=== PATIENT | male | born 1955 | race African-American/Black ===

== ENCOUNTER 2016-09-24 20:53 | Emergency (ER) | payer MEDICAID, OTHER ==
[~2016-09-24] VITALS: Ht 165.1 cm; Wt 107.0 kg
[2016-09-25 04:31] VITALS: BP 106/60
== END 2016-09-25 04:37 | disposition home or self-care (01) ==
LOC: ER 09-25 02:58
DX: S92.421A Displaced fracture of distal phalanx of right great toe, initial encounter for closed fracture (principal); I10 Essential (primary) hypertension; W22.03XA Walked into furniture, initial encounter; Y93.89 Activity, other specified; Y92.89 Other specified places as the place of occurrence of the external cause; Y99.8 Other external cause status
CPT/HCPCS: 73660; 99284; Z7610

== ENCOUNTER 2016-12-21 13:40 | Emergency (ER) | payer OTHER ==
[~2016-12-21] VITALS: Ht 165.1 cm; Wt 109.0 kg
[2016-12-21] MEDS ORDERED: KETOROLAC 30MG/ML VIAL IV ONE (15:30)
[2016-12-21] MEDS ORDERED: LIDOCAINE HCL 1% 20ML VIAL (Pyxis) INJ INFIL ONE (19:30)
[2016-12-21] MEDS ORDERED: TETANUS, DIPHTHERIA, PERTUSSIS VAC/PF 0.5ML (>7YR OLD) IM ONE ×2 (22:45→23:15)
[2016-12-21 23:46] VITALS: BP 109/59
== END 2016-12-22 00:14 | disposition home or self-care (01) ==
LOC: ER 14:10
DX: S42.292A Other displaced fracture of upper end of left humerus, initial encounter for closed fracture (principal); S81.812A Laceration without foreign body, left lower leg, initial encounter; S80.811A Abrasion, right lower leg, initial encounter; I10 Essential (primary) hypertension; E11.9 Type 2 diabetes mellitus without complications; W11.XXXA Fall on and from ladder, initial encounter; Y93.89 Activity, other specified; Y92.89 Other specified places as the place of occurrence of the external cause; Y99.8 Other external cause status
CPT/HCPCS: 12002; 73000; 73030; 90471; 90715; 96374; 99284; J1885; J3490; Z7610; A4565

== ENCOUNTER 2017-01-06 10:29 | Emergency (ER) | payer OTHER ==
[~2017-01-06] VITALS: Ht 165.1 cm; Wt 109.0 kg
[2017-01-06] MEDS ORDERED: BACITRACIN ZINC OINT UDPKT TOP ONE (11:15)
[2017-01-06] MEDS ORDERED: IBUPROFEN 600MG TABLET PO ONE (11:15)
[2017-01-06 11:30] VITALS: BP 164/70
== END 2017-01-06 11:48 | disposition home or self-care (01) ==
LOC: ER 10:53
DX: S81.812D Laceration without foreign body, left lower leg, subsequent encounter (principal); I10 Essential (primary) hypertension; E11.9 Type 2 diabetes mellitus without complications; X58.XXXD Exposure to other specified factors, subsequent encounter
CPT/HCPCS: 99283; Z7610

== ENCOUNTER 2018-03-30 13:39 | Emergency (ER) | payer OTHER ==
[~2018-03-30] VITALS: Ht 172.7 cm; Wt 113.0 kg
[2018-03-30] MEDS ORDERED: IBUPROFEN 600MG TABLET PO ONE (15:00)
[2018-03-30 16:26] VITALS: BP 129/98
== END 2018-03-30 16:38 | disposition home or self-care (01) ==
LOC: ER 13:47
DX: S90.32XA Contusion of left foot, initial encounter (principal); E11.9 Type 2 diabetes mellitus without complications; I10 Essential (primary) hypertension; Z86.73 Personal history of transient ischemic attack (TIA), and cerebral infarction without residual deficits; Z90.49 Acquired absence of other specified parts of digestive tract; V03.10XA Pedestrian on foot injured in collision with car, pick-up truck or van in traffic accident, initial encounter; Y93.89 Activity, other specified; Y92.488 Other paved roadways as the place of occurrence of the external cause
CPT/HCPCS: 73610; 73630; 99283

== ENCOUNTER 2021-08-26 10:51 | Inpatient (IN) | payer MEDICARE, MEDICAID ==
[~2021-08-26] VITALS: Ht 165.1 cm; Wt 111.6 kg
[2021-08-26] MEDS ORDERED: ALBUTEROL (0.083%) 2.5MG/3ML NEB HHN STA (11:57)
[2021-08-26 12:22] LABS: BASOPHILS % 0.8 % (0.0-2.0); EOSINOPHILS % 3.1 % (0.0-5.0); HEMATOCRIT. 40.9 % (42.0-52.0); HEMOGLOBIN. 12.8 g/dL (14.0-18.0); LYMPHOCYTES % 18.1 % (20.0-50.0); MEAN CORPUSCULAR HEMOGLOBIN 26.2 pg (28.0-32.0); MEAN CORPUSCULAR VOLUME 83.6 fL (80.0-94.0); MEAN PLATELET VOLUME 11.9 fl (7.4-10.4); MONOCYTES % 8.2 % (2.0-8.0); NEUTROPHILS % 69.8 % (40.0-76.0); PLATELET 122 x1000/uL (130-400); RED BLOOD CELL COUNT 4.89 mill/uL (4.7-6.1); RED CELL DISTRIBUTION WIDTH 17.5 % (11.6-14.6)
[2021-08-26 12:33] LABS: CHLORIDE 109 mEq/L (98-107)
[2021-08-26 12:36] LABS: ETHANOL BLOOD < 10 mg/dL
[2021-08-26 14:06] LABS: *AMPHETAMINES SCREEN URINE NEGATIVE (NEGATIVE); *BARBITURATES SCREEN URINE NEGATIVE (NEGATIVE); *BENZODIAZEPINES SCREEN URINE NEGATIVE (NEGATIVE); *COCAINE SCREEN URINE NEGATIVE (NEGATIVE); CANNABINOID URINE SCREEN NEGATIVE (NEGATIVE); METHADONE URINE SCREEN NEGATIVE (NEGATIVE); OPIATES URINE SCREEN NEGATIVE (NEGATIVE); PHENCYCLIDINE URINE SCREEN NEGATIVE (NEGATIVE)
[2021-08-26] MEDS ORDERED: NITROGLYCERIN OINT 1GM/INCH UDPKT TD NR (14:15)
[2021-08-26] MEDS ORDERED: ALBUTEROL 6.7GM HFA INHALER ORI NR (14:15)
[2021-08-26] MEDS ORDERED: ASPIRIN 325MG EC TABLET PO NR (15:00)
[2021-08-26] MEDS ORDERED: FUROSEMIDE 40MG/4ML VIAL IV NR (15:00)
[2021-08-26] MEDS ORDERED: DEXAMETHASONE 4MG TABLET PO NR (15:00)
[2021-08-26 18:28] VITALS: BP 158/88
[2021-08-26 20:00] VITALS: BP 145/64
[2021-08-26 23:54] VITALS: BP 142/98
[2021-08-27] VITALS: BP 141/82
[2021-08-27] MEDS ORDERED: METF-416 PO (00:10)
[2021-08-27] MEDS ORDERED: ATOR-2 PO (00:10)
[2021-08-27] MEDS ORDERED: CARV12.545 PO (00:10)
[2021-08-27] MEDS ORDERED: ASPI-1406 PO (00:10)
[2021-08-27] MEDS ORDERED: LISI20TA31 PO (00:10)
[2021-08-27] MEDS: AZITHROMYCIN 500 MG in DEXT 5% WATER 250 ML IV SCH (02:28)
[2021-08-27] MEDS: CEFTRIAXONE 1,000 MG in DEXTROSE 5% WATER 50 ML IV SCH (02:28)
[2021-08-27 04:00] VITALS: BP 137/73
[2021-08-27] MEDS ORDERED: ENOXAPARIN 30MG/0.3ML SYR SUBCUT SCH (06:00)
[2021-08-27 07:46] LABS: BASOPHILS % 0.2 % (0.0-2.0); HEMOGLOBIN. 12.4 g/dL (14.0-18.0); LYMPHOCYTES % 11.5 % (20.0-50.0); MEAN CORPUSCULAR HEMOGLOBIN 26.1 pg (28.0-32.0); MEAN CORPUSCULAR VOLUME 82.4 fL (80.0-94.0); MEAN PLATELET VOLUME 12.8 fl (7.4-10.4); NEUTROPHILS % 84.3 % (40.0-76.0); PLATELET 133 x1000/uL (130-400); RED BLOOD CELL COUNT 4.73 mill/uL (4.7-6.1); RED CELL DISTRIBUTION WIDTH 16.6 % (11.6-14.6)
[2021-08-27 08:09] LABS: CHLORIDE 107 mEq/L (98-107)
[2021-08-27] MEDS: DEXAMETHASONE 4MG TABLET PO SCH (08:47)
[2021-08-27] MEDS ORDERED: CEFTRIAXONE 1 G PREMIX 50 ML IV SCH (09:00)
[2021-08-27] MEDS ORDERED: ACETAMINOPHEN 650MG/20.3ML UDC GT PRN (09:30)
[2021-08-27] MEDS ORDERED: HYDROCODONE/ACETAMINOPHEN 5/325MG TABLET PO PRN (09:30)
[2021-08-27] MEDS ORDERED: MORPHINE SULFATE 2 MG/ML CPJ (NOT FOR IM USE) IV PRN (09:30)
[2021-08-27] MEDS ORDERED: ONDANSETRON HCL 4MG/2ML INJ IV PRN (09:30)
[2021-08-27 10:11] LABS: BG BASE EXCESS -2.1 mmol/L (-2.0-2.0); BG CARBOXYHEMOGLOBIN 0.8 % (0.5-1.5); BG DEOXYHEMOGLOBIN 3.5 % (0.0-5.0); BG FRACTION INSPIRED OXYGEN 21; BG HCO3 ACT 22.7 mmol/L (22.0-26.0); BG METHEMOGLOBIN 0.3 % (0.0-1.5); BG OXYGEN SATURATION 96.5 % (92.0-98.5); BG OXYHEMOGLOBIN 95.4 % (94.0-97.0); BG PH 7.383 (7.350-7.450); BG PO2 88.4 mmHg (75.0-100.0); BG SAMPLE SITE RIGHT RADIAL; BG TOTAL HEMOGLOBIN 13.5 g/dL (12.0-18.0); BG VENT MODE ROOM AIR
[2021-08-27] MEDS ORDERED: NALOXONE HCL 0.4MG/ML VIAL IV PRN (11:30)
[2021-08-27 12:00] VITALS: BP_SYST 108; BP_SYST 142; BP_DIAS 70; BP_DIAS 97
[2021-08-27] MEDS: FUROSEMIDE 40MG/4ML VIAL IVP SCH (12:36)
[2021-08-27] MEDS: ASPIRIN 81MG EC TABLET PO SCH (12:37)
[2021-08-27] MEDS: ENOXAPARIN 120MG/0.8ML SYR SUBCUT SCH (15:12)
[2021-08-27] MEDS: CARVEDILOL 12.5MG TABLET PO SCH ×2 (15:15→20:37)
[2021-08-27 16:00] VITALS: BP 142/97
[2021-08-27] MEDS ORDERED: BENZONATATE 100MG CAPSULE PO PRN (16:45)
[2021-08-27] MEDS ORDERED: ALBUTEROL 6.7GM HFA INHALER ORI PRN (16:45)
[2021-08-27] MEDS: METFORMIN HCL 500MG TABLET PO SCH (18:35)
[2021-08-27 20:00] VITALS: BP 167/103
[2021-08-27] MEDS: TRIAMCINOLONE ACETONIDE 0.1 % OINT 15GM TOP SCH (20:37)
[2021-08-27 20:47] LABS: CREATINE KINASE MB FRACTION 1.2 ng/mL (0.5-3.6)
[2021-08-28] VITALS: BP 135/97
[2021-08-28] MEDS: ENOXAPARIN 120MG/0.8ML SYR SUBCUT SCH ×2 (00:18→13:05)
[2021-08-28] MEDS: CEFTRIAXONE 1,000 MG in DEXTROSE 5% WATER 50 ML IV SCH (02:37)
[2021-08-28] MEDS: AZITHROMYCIN 500 MG in DEXT 5% WATER 250 ML IV SCH (02:38)
[2021-08-28 03:24] LABS: CREATINE KINASE MB FRACTION 1.5 ng/mL (0.5-3.6)
[2021-08-28 04:00] VITALS: BP 132/82
[2021-08-28 08:00] VITALS: BP 141/84
[2021-08-28] MEDS ORDERED: FURO-151 MT (08:53)
[2021-08-28] MEDS: DEXAMETHASONE 4MG TABLET PO SCH (09:21)
[2021-08-28] MEDS: FUROSEMIDE 40MG/4ML VIAL IVP SCH (09:21)
[2021-08-28] MEDS: ASPIRIN 81MG EC TABLET PO SCH (09:21)
[2021-08-28] MEDS: METFORMIN HCL 500MG TABLET PO SCH ×2 (09:21→16:53)
[2021-08-28] MEDS: CARVEDILOL 12.5MG TABLET PO SCH ×2 (09:21→21:32)
[2021-08-28] MEDS: TRIAMCINOLONE ACETONIDE 0.1 % OINT 15GM TOP SCH ×2 (09:22→21:32)
[2021-08-28 11:29] LABS: CLARITY URINE CLEAR (CLEAR); COLOR URINE YELLOW (YELLOW); KETONES URINE NEGATIVE (NEGATIVE); LEUKOCYTE ESTERASE URINE NEGATIVE (NEGATIVE); NITRITE URINE NEGATIVE (NEGATIVE); OCCULT BLOOD URINE NEGATIVE (NEGATIVE); PROTEIN URINE NEGATIVE (NEGATIVE); SPECIFIC GRAVITY URINE 1.006 (1.005-1.030); UROBILINOGEN URINE 0.2 E.U./dL (0.2-1.0)
[2021-08-28 12:00] VITALS: BP 138/87
[2021-08-28 16:00] VITALS: BP 150/104
[2021-08-28] MEDS ORDERED: CLONIDINE 0.1MG TABLET PO PRN (18:45)
[2021-08-28 20:00] VITALS: BP 165/94
[2021-08-29] VITALS: BP_SYST 142; BP_SYST 154; BP_DIAS 67; BP_DIAS 77
[2021-08-29] MEDS: ENOXAPARIN 120MG/0.8ML SYR SUBCUT SCH ×2 (00:11→12:22)
[2021-08-29] MEDS: CEFTRIAXONE 1,000 MG in DEXTROSE 5% WATER 50 ML IV SCH (03:08)
[2021-08-29 04:00] VITALS: BP 146/93
[2021-08-29 08:00] VITALS: BP 155/95
[2021-08-29] MEDS ORDERED: AZITHROMYCIN 500 MG TABLET PO SCH (08:00)
[2021-08-29] MEDS: TRIAMCINOLONE ACETONIDE 0.1 % OINT 15GM TOP SCH (08:09)
[2021-08-29] MEDS: ASPIRIN 81MG EC TABLET PO SCH (08:10)
[2021-08-29] MEDS: DEXAMETHASONE 4MG TABLET PO SCH (08:10)
[2021-08-29] MEDS: METFORMIN HCL 500MG TABLET PO SCH (08:10)
[2021-08-29] MEDS: FUROSEMIDE 40MG/4ML VIAL IVP SCH (09:49)
[2021-08-29] MEDS: CARVEDILOL 12.5MG TABLET PO SCH (09:49)
[2021-08-29 12:00] VITALS: BP 155/95
[2021-08-29 12:01] VITALS: BP 116/83
[2021-08-29 13:31] VITALS: BP 116/83
== END 2021-08-29 15:20 | disposition home or self-care (01) | DRG 177 ==
LOC: ER 10:51 → 7EST 15:15 → ENRESERV 17:23
PROVIDERS: ADMIT Internal Medicine Nephrology; ATTEND Internal Medicine Nephrology
DX: U07.1 COVID-19 (principal); I50.33 Acute on chronic diastolic (congestive) heart failure; J96.00 Acute respiratory failure, unspecified whether with hypoxia or hypercapnia; Z68.41 Body mass index [BMI] 40.0-44.9, adult; I48.91 Unspecified atrial fibrillation; E66.9 Obesity, unspecified; E11.9 Type 2 diabetes mellitus without complications; I11.0 Hypertensive heart disease with heart failure; J20.8 Acute bronchitis due to other specified organisms; Z86.73 Personal history of transient ischemic attack (TIA), and cerebral infarction without residual deficits; Z79.01 Long term (current) use of anticoagulants; Z87.891 Personal history of nicotine dependence; Z91.018 Allergy to other foods; Z90.49 Acquired absence of other specified parts of digestive tract; Z79.82 Long term (current) use of aspirin; Z79.84 Long term (current) use of oral hypoglycemic drugs; Z71.3 Dietary counseling and surveillance
CPT/HCPCS: 36415; 36600; 71045; 80048; 80053; 80305; 80320; 81003; 82375; 82550; 82553; 82805; 83036; 83880; 84484; 85025; 87426; 99285; C9803; J0456; J0696; J1650; J1940; J7060; J8540; G0480

== ENCOUNTER 2021-09-03 09:45 | Emergency (ER) | payer MEDICARE, MEDICAID ==
[~2021-09-03] VITALS: Ht 165.1 cm; Wt 109.0 kg
[~2021-09-03 09:45] MED LIST: ASPI-1406 PO; ATOR-2 PO; CARV12.545 PO; FURO-151 MT; LISI20TA31 PO; METF-416 PO
[2021-09-03 09:53] VITALS: BP 156/115
== END 2021-09-03 10:58 | disposition home or self-care (01) ==
LOC: ER 09:45
DX: Z11.52 Encounter for screening for COVID-19 (principal)
CPT/HCPCS: 99281

== ENCOUNTER 2021-09-22 10:23 | Inpatient (IN) | payer MEDICARE, MEDICAID ==
[~2021-09-22] VITALS: Ht 165.1 cm; Wt 108.9 kg
[2021-09-22 12:22] LABS: BASOPHILS % 1.3 % (0.0-2.0); EOSINOPHILS % 2.9 % (0.0-5.0); HEMATOCRIT. 42.7 % (42.0-52.0); HEMOGLOBIN. 13.5 g/dL (14.0-18.0); LYMPHOCYTES % 19.3 % (20.0-50.0); MEAN CORPUSCULAR HEMOGLOBIN 26.3 pg (28.0-32.0); MEAN CORPUSCULAR VOLUME 83.1 fL (80.0-94.0); MEAN PLATELET VOLUME 12.6 fl (7.4-10.4); MONOCYTES % 9.2 % (2.0-8.0); NEUTROPHILS % 67.3 % (40.0-76.0); PLATELET 131 x1000/uL (130-400); RED BLOOD CELL COUNT 5.14 mill/uL (4.7-6.1); RED CELL DISTRIBUTION WIDTH 17.2 % (11.6-14.6)
[2021-09-22 12:33] LABS: CHLORIDE 112 mEq/L (98-107)
[2021-09-22] MEDS ORDERED: FUROSEMIDE 40MG/4ML VIAL IVP SCH (13:00)
[2021-09-22] MEDS ORDERED: METOPROLOL TARTRATE 5MG/5ML VIAL IV ONE (15:00)
[2021-09-22 22:00] VITALS: BP 149/83
[2021-09-22 23:00] VITALS: BP 149/83
[2021-09-22] MEDS ORDERED: MAGNESIUM/ALUMINUM HYDROXIDE/SIMETHICONE 30ML UDC PO PRN (23:00)
[2021-09-22] MEDS ORDERED: HYDROCODONE/ACETAMINOPHEN 5/325MG TABLET PO PRN (23:00)
[2021-09-22] MEDS ORDERED: MORPHINE SULFATE 2 MG/ML CPJ (NOT FOR IM USE) IV PRN (23:00)
[2021-09-22] MEDS ORDERED: ACETAMINOPHEN 650MG SUPP PR PRN (23:00)
[2021-09-22] MEDS ORDERED: IPRATROPIUM/ALBUTEROL 0.5-3(2.5)MG/3ML NEB NEB PRN (23:00)
[2021-09-22] MEDS ORDERED: ONDANSETRON HCL 4MG/2ML INJ IV PRN (23:00)
[2021-09-22] MEDS ORDERED: ACETAMINOPHEN 325MG TABLET PO PRN (23:00)
[2021-09-23] VITALS: BP 140/82
[2021-09-23] MEDS ORDERED: DEXTROSE 50% WATER 50ML SYRINGE IV PRN (01:15)
[2021-09-23] MEDS: BLOOD SUGAR DIAGNOSTIC STRIP TEST SCH ×4 (06:47→21:00)
[2021-09-23 06:52] LABS: BASOPHILS % 0.8 % (0.0-2.0); HEMATOCRIT. 42.2 % (42.0-52.0); HEMOGLOBIN. 13.4 g/dL (14.0-18.0); LYMPHOCYTES % 24.1 % (20.0-50.0); MEAN CORPUSCULAR HEMOGLOBIN 26.2 pg (28.0-32.0); MEAN CORPUSCULAR VOLUME 82.6 fL (80.0-94.0); MEAN PLATELET VOLUME 12.2 fl (7.4-10.4); MONOCYTES % 10.1 % (2.0-8.0); PLATELET 133 x1000/uL (130-400); RED BLOOD CELL COUNT 5.11 mill/uL (4.7-6.1); RED CELL DISTRIBUTION WIDTH 17.4 % (11.6-14.6)
[2021-09-23 07:05] LABS: CHLORIDE 108 mEq/L (98-107)
[2021-09-23 07:14] LABS: PHOSPHORUS 3.5 mg/dL (2.5-4.9)
[2021-09-23] MEDS: INSULIN LISPRO 100 UNITS/ML SUBCUT SCH ×4 (07:16→21:46)
[2021-09-23 08:00] VITALS: BP 153/97
[2021-09-23] MEDS: FUROSEMIDE 40MG/4ML VIAL IV SCH ×2 (08:42)
[2021-09-23] MEDS: METOPROLOL TARTRATE 25MG TABLET PO SCH ×2 (08:43→16:59)
[2021-09-23] MEDS: ENOXAPARIN 30MG/0.3ML SYR SUBCUT SCH ×2 (08:43→21:46)
[2021-09-23] MEDS: ASPIRIN 81MG EC TABLET PO SCH (08:43)
[2021-09-23] MEDS: FOLIC ACID 1MG TABLET PO SCH (08:44)
[2021-09-23 10:29] LABS: CLARITY URINE CLEAR (CLEAR); COLOR URINE YELLOW (YELLOW); KETONES URINE NEGATIVE (NEGATIVE); LEUKOCYTE ESTERASE URINE NEGATIVE (NEGATIVE); NITRITE URINE NEGATIVE (NEGATIVE); OCCULT BLOOD URINE NEGATIVE (NEGATIVE); PH URINE 5.5 (4.5-8.0); PROTEIN URINE 3+ (NEGATIVE); SPECIFIC GRAVITY URINE 1.019 (1.005-1.030)
[2021-09-23 10:50] LABS: *AMPHETAMINES SCREEN URINE NEGATIVE (NEGATIVE); *BARBITURATES SCREEN URINE NEGATIVE (NEGATIVE); *BENZODIAZEPINES SCREEN URINE NEGATIVE (NEGATIVE); *COCAINE SCREEN URINE NEGATIVE (NEGATIVE); CANNABINOID URINE SCREEN NEGATIVE (NEGATIVE); METHADONE URINE SCREEN NEGATIVE (NEGATIVE); OPIATES URINE SCREEN NEGATIVE (NEGATIVE); PHENCYCLIDINE URINE SCREEN NEGATIVE (NEGATIVE)
[2021-09-23 12:00] VITALS: BP 154/97
[2021-09-23 16:00] VITALS: BP 133/93
[2021-09-23] MEDS ORDERED: NALOXONE HCL 0.4MG/ML VIAL IV PRN (16:30)
[2021-09-23 20:00] VITALS: BP 133/73
[2021-09-24] VITALS: BP 122/79
[2021-09-24] MEDS: BLOOD SUGAR DIAGNOSTIC STRIP TEST SCH ×4 (06:10→20:21)
[2021-09-24] MEDS: INSULIN LISPRO 100 UNITS/ML SUBCUT SCH ×4 (06:10→20:21)
[2021-09-24 08:00] VITALS: BP 114/93
[2021-09-24] MEDS: FOLIC ACID 1MG TABLET PO SCH (09:25)
[2021-09-24] MEDS: FUROSEMIDE 40MG/4ML VIAL IV SCH (09:25)
[2021-09-24] MEDS: METOPROLOL TARTRATE 25MG TABLET PO SCH ×2 (09:25→17:18)
[2021-09-24] MEDS: ASPIRIN 81MG EC TABLET PO SCH (09:25)
[2021-09-24] MEDS: ENOXAPARIN 30MG/0.3ML SYR SUBCUT SCH ×2 (09:26→21:04)
[2021-09-24 12:00] VITALS: BP 149/99
[2021-09-24 16:00] VITALS: BP 128/97
[2021-09-24 20:00] VITALS: BP 134/84
[2021-09-25] VITALS: BP 133/90
[2021-09-25 04:00] VITALS: BP 128/82
[2021-09-25 07:19] LABS: EOSINOPHILS % 3.4 % (0.0-5.0); HEMATOCRIT. 45.4 % (42.0-52.0); HEMOGLOBIN. 14.4 g/dL (14.0-18.0); LYMPHOCYTES % 28.1 % (20.0-50.0); MEAN CORPUSCULAR HEMOGLOBIN 26.3 pg (28.0-32.0); MEAN CORPUSCULAR VOLUME 82.7 fL (80.0-94.0); MEAN PLATELET VOLUME 12.3 fl (7.4-10.4); MONOCYTES % 12.5 % (2.0-8.0); PLATELET 151 x1000/uL (130-400); RED BLOOD CELL COUNT 5.49 mill/uL (4.7-6.1); RED CELL DISTRIBUTION WIDTH 17.1 % (11.6-14.6)
[2021-09-25 07:22] LABS: CHLORIDE 106 mEq/L (98-107)
[2021-09-25] MEDS: BLOOD SUGAR DIAGNOSTIC STRIP TEST SCH ×4 (07:40→21:00)
[2021-09-25 08:00] VITALS: BP 152/80
[2021-09-25] MEDS: INSULIN LISPRO 100 UNITS/ML SUBCUT SCH ×4 (08:06→21:00)
[2021-09-25] MEDS: FUROSEMIDE 40MG/4ML VIAL IV SCH (09:00)
[2021-09-25] MEDS: ASPIRIN 81MG EC TABLET PO SCH (09:00)
[2021-09-25] MEDS: FOLIC ACID 1MG TABLET PO SCH (09:00)
[2021-09-25] MEDS: METOPROLOL TARTRATE 25MG TABLET PO SCH (09:05)
[2021-09-25] MEDS: ENOXAPARIN 30MG/0.3ML SYR SUBCUT SCH (09:11)
[2021-09-25] MEDS ORDERED: BETDL TP (11:35)
[2021-09-25 12:00] VITALS: BP 148/90
[2021-09-25] MEDS: POTASSIUM CHLORIDE 20MEQ TABLET SR PO SCH (13:39)
[2021-09-25] MEDS: DILTIAZEM HCL 60MG TABLET PO SCH ×2 (13:40→22:18)
[2021-09-25 16:00] VITALS: BP 148/107
[2021-09-25] MEDS: CARVEDILOL 6.25 MG TABLET PO SCH (17:10)
[2021-09-25] MEDS: RIVAROXABAN 20 MG TABLET PO SCH (17:10)
[2021-09-25 20:00] VITALS: BP 136/78
[2021-09-26] VITALS: BP 151/95
[2021-09-26 04:00] VITALS: BP 149/88
[2021-09-26] MEDS: INSULIN LISPRO 100 UNITS/ML SUBCUT SCH ×4 (06:13→21:00)
[2021-09-26] MEDS: DILTIAZEM HCL 60MG TABLET PO SCH ×3 (06:14→21:20)
[2021-09-26] MEDS: BLOOD SUGAR DIAGNOSTIC STRIP TEST SCH ×4 (06:35→21:00)
[2021-09-26 07:53] VITALS: BP 104/77
[2021-09-26] MEDS: FOLIC ACID 1MG TABLET PO SCH (08:33)
[2021-09-26] MEDS: POTASSIUM CHLORIDE 20MEQ TABLET SR PO SCH (08:33)
[2021-09-26] MEDS: FUROSEMIDE 40MG/4ML VIAL IV SCH (08:33)
[2021-09-26] MEDS: ASPIRIN 81MG EC TABLET PO SCH (08:33)
[2021-09-26] MEDS: CARVEDILOL 6.25 MG TABLET PO SCH ×2 (08:34→16:41)
[2021-09-26 10:14] LABS: BASOPHILS % 0.9 % (0.0-2.0); EOSINOPHILS % 2.9 % (0.0-5.0); HEMATOCRIT. 45.9 % (42.0-52.0); HEMOGLOBIN. 14.1 g/dL (14.0-18.0); LYMPHOCYTES % 21.7 % (20.0-50.0); MEAN CORPUSCULAR HEMOGLOBIN 25.6 pg (28.0-32.0); MEAN CORPUSCULAR VOLUME 83.3 fL (80.0-94.0); MEAN PLATELET VOLUME 12.4 fl (7.4-10.4); MONOCYTES % 10.1 % (2.0-8.0); NEUTROPHILS % 64.4 % (40.0-76.0); PLATELET 165 x1000/uL (130-400); RED BLOOD CELL COUNT 5.51 mill/uL (4.7-6.1); RED CELL DISTRIBUTION WIDTH 17.4 % (11.6-14.6)
[2021-09-26 10:24] LABS: CHLORIDE 102 mEq/L (98-107)
[2021-09-26] MEDS ORDERED: RIVA20TA PO (11:05)
[2021-09-26] MEDS ORDERED: FOLI-43 PO (11:05)
[2021-09-26 11:35] VITALS: BP 149/87
[2021-09-26 16:30] VITALS: BP 132/89
[2021-09-26] MEDS: RIVAROXABAN 20 MG TABLET PO SCH (16:41)
[2021-09-26 20:00] VITALS: BP 138/69
[2021-09-27] VITALS: BP 135/63
[2021-09-27 04:00] VITALS: BP 128/65
[2021-09-27] MEDS: BLOOD SUGAR DIAGNOSTIC STRIP TEST SCH (06:33)
[2021-09-27] MEDS: DILTIAZEM HCL 60MG TABLET PO SCH (06:34)
[2021-09-27] MEDS: INSULIN LISPRO 100 UNITS/ML SUBCUT SCH (06:47)
[2021-09-27] MEDS: ASPIRIN 81MG EC TABLET PO SCH (09:51)
[2021-09-27] MEDS: FUROSEMIDE 40MG/4ML VIAL IV SCH (09:51)
[2021-09-27] MEDS: CARVEDILOL 6.25 MG TABLET PO SCH (09:56)
[2021-09-27] MEDS: FOLIC ACID 1MG TABLET PO SCH (09:56)
[2021-09-27] MEDS: POTASSIUM CHLORIDE 20MEQ TABLET SR PO SCH (09:56)
[2021-09-27 11:45] VITALS: BP 147/96
[2021-09-27] MEDS ORDERED: CARVEDILOL 12.5MG TABLET PO SCH (17:00)
[2021-09-28] MEDS ORDERED: FUROSEMIDE 40MG TABLET PO SCH (09:00)
== END 2021-09-27 14:35 | disposition home health service (06) | DRG 291 ==
LOC: ER 10:23 → 7WST 15:58 → ENRESERV 18:39 → 7WST 09-25 17:19
PROVIDERS: ADMIT Internal Medicine Nephrology; ATTEND Internal Medicine Nephrology
DX: I11.0 Hypertensive heart disease with heart failure (principal); I50.33 Acute on chronic diastolic (congestive) heart failure; I42.9 Cardiomyopathy, unspecified; I48.91 Unspecified atrial fibrillation; I07.1 Rheumatic tricuspid insufficiency; E11.9 Type 2 diabetes mellitus without complications; J44.9 Chronic obstructive pulmonary disease, unspecified; I27.20 Pulmonary hypertension, unspecified; Z20.822 Contact with and (suspected) exposure to COVID-19; Z91.018 Allergy to other foods; Z90.49 Acquired absence of other specified parts of digestive tract; Z86.16 Personal history of COVID-19; Z87.01 Personal history of pneumonia (recurrent); Z86.73 Personal history of transient ischemic attack (TIA), and cerebral infarction without residual deficits; Z87.891 Personal history of nicotine dependence; Z79.01 Long term (current) use of anticoagulants
CPT/HCPCS: 36415; 71045; 80048; 80053; 80305; 81003; 82962; 83036; 83735; 83880; 84100; 84484; 85025; 85379; 87426; 93005; 93306; 93970; 99285; J1650; J1815; J1940; J3490

== ENCOUNTER 2021-11-13 09:26 | Emergency (ER) | payer MEDICARE, MEDICAID ==
[~2021-11-13] VITALS: Ht 165.1 cm; Wt 109.0 kg
[~2021-11-13 09:26] MED LIST changes: +BETDL TP; +FOLI-43 PO; +RIVA20TA PO
[2021-11-13 09:51] VITALS: BP 166/101
[2021-11-13] MEDS ORDERED: ACETAMINOPHEN 325MG TABLET PO ONE (10:45)
[2021-11-13] MEDS ORDERED: IBUPROFEN 400MG TABLET PO ONE (10:45)
[2021-11-13] MEDS ORDERED: TOPUD PO (12:35)
== END 2021-11-13 13:20 | disposition home or self-care (01) ==
LOC: ER 09:26
DX: M25.561 Pain in right knee (principal); E11.9 Type 2 diabetes mellitus without complications; Z91.018 Allergy to other foods; Z79.899 Other long term (current) drug therapy; Z98.890 Other specified postprocedural states; Z90.49 Acquired absence of other specified parts of digestive tract; Z86.73 Personal history of transient ischemic attack (TIA), and cerebral infarction without residual deficits; W18.30XA Fall on same level, unspecified, initial encounter; Y93.01 Activity, walking, marching and hiking; Y92.89 Other specified places as the place of occurrence of the external cause; Y99.8 Other external cause status
CPT/HCPCS: 73560; 73590; 99284

== ENCOUNTER 2022-04-29 11:53 | Emergency (ER) | payer MEDICARE, MEDICAID ==
[~2022-04-29] VITALS: Ht 175.3 cm; Wt 109.0 kg
[~2022-04-29 11:53] MED LIST changes: +TOPUD PO
[2022-04-29 15:10] LABS: BASOPHILS % 0.6 % (0.0-2.0); EOSINOPHILS % 1.7 % (0.0-5.0); HEMATOCRIT. 46.2 % (42.0-52.0); LYMPHOCYTES % 15.6 % (20.0-50.0); MEAN CORPUSCULAR HEMOGLOBIN 24.5 pg (28.0-32.0); MONOCYTES % 10.8 % (2.0-8.0); NEUTROPHILS % 71.3 % (40.0-76.0); PLATELET 160 x1000/uL (130-400); RED CELL DISTRIBUTION WIDTH 21.3 % (11.6-14.6)
[2022-04-29 15:27] LABS: CHLORIDE 111 mEq/L (98-107)
[2022-04-29 16:15] VITALS: BP 141/97
== END 2022-04-29 16:15 | disposition home or self-care (01) ==
LOC: ER 11:53
DX: R60.0 Localized edema (principal); E11.22 Type 2 diabetes mellitus with diabetic chronic kidney disease; I13.0 Hypertensive heart and chronic kidney disease with heart failure and stage 1 through stage 4 chronic kidney disease, or unspecified chronic kidney disease; N18.9 Chronic kidney disease, unspecified; I50.9 Heart failure, unspecified; E78.00 Pure hypercholesterolemia, unspecified; Z96.649 Presence of unspecified artificial hip joint; Z86.73 Personal history of transient ischemic attack (TIA), and cerebral infarction without residual deficits; Z90.49 Acquired absence of other specified parts of digestive tract; Z79.82 Long term (current) use of aspirin
CPT/HCPCS: 36415; 80053; 83880; 84484; 85025; 93005; 93970; 99285